=== PATIENT | female | born 1965 | race Caucasian/White ===

== ENCOUNTER 2016-11-30 11:19 | Emergency (ER) | payer OTHER ==
[~2016-11-30] VITALS: Ht 162.6 cm; Wt 73.1 kg
[2016-11-30 11:31] VITALS: BP 136/75
--- NOTE | 2016-11-30 12:18 | NUR ---
Patient ambulated to bed 06.
--- NOTE | 2016-11-30 12:25 | NUR ---
PATIENT PRESENTS TO ED WITH C/O LOWER ABDOMINAL PAIN RADIATING TO RIGHT LOWER BACK X 3 DAYS;BURNING COLIC TYPE PAIN, BLOATING;DENIES N/V/D; SKIN IS PINK/WARM/DRY; AAOX4 WITH EVEN AND STEADY GAIT; LUNGS CLEAR BL; HR EVEN AND REGULAR; PT DENIES ANY FEVER, CP, SOB, OR COUGH AT THIS TIME; PATIENT STATES PAIN OF 9/10 AT THIS TIME;PATIENT POSITIONED FOR COMFORT; HOB ELEVATED; BEDRAILS UP X2; BED DOWN. ALL MONITORS IN PLACED;ER MD MADE AWARE OF PT STATUS.
--- NOTE | 2016-11-30 12:28 | NUR ---
Dr. Calhoun evaluating patient at bedside.
[2016-11-30] MEDS ORDERED: KETOROLAC 60 MG/2 ML VIAL IM ONE (12:30)
--- NOTE | 2016-11-30 12:45 | NUR ---
Patient taken to CT via wheelchair per tech.
--- NOTE | 2016-11-30 12:54 | NUR ---
Patient back from CT via wheelchair per tech.
[2016-11-30 13:38] VITALS: BP 114/76
== END 2016-11-30 13:38 | disposition home or self-care (01) ==
LOC: MED 11:19
DX: R10.2 Pelvic and perineal pain (principal); R03.0 Elevated blood-pressure reading, without diagnosis of hypertension
CPT/HCPCS: 74176; 81002; 81025; 96372; 99284; J1885

== ENCOUNTER 2017-04-22 16:36 | Emergency (ER) | payer OTHER ==
[~2017-04-22] VITALS: Ht 160 cm; Wt 71.8 kg
[2017-04-22 16:56] VITALS: BP 125/69
--- NOTE | 2017-04-22 17:00 | NUR ---
PATIENT TO OF 3
--- NOTE | 2017-04-22 17:04 | NUR ---
PATIENT PRESENTS TO ED WITH C/O PRODUCTIVE COUGH YELLOW PHLEGM, SORE THROAT, CHEST, BACK PAIN, HEAD ACHE 10/10; DENIES N/V/D;DENIES FEVER/SOB;DENIES ANY MREDICAL HX;SKIN IS PINK/WARM/DRY; AAOX4 WITH EVEN AND STEADY GAIT; PATIENT STATES PAIN OF 10/10 AT THIS TIME;PATIENT POSITIONED FOR COMFORT; ER MD MADE AWARE OF PT STATUS.
[2017-04-22 18:00] VITALS: BP 128/73
--- NOTE | 2017-04-22 18:00 | NUR ---
Patient discharged with v/s stable. Written and verbal after care instructions given and explained. Patient alert, oriented and verbalized understanding of instructions. Ambulatory with to car. All questions addressed prior to discharge. ID band removed. Patient advised to follow up with PMD. Rx of promethazine and tramadol given. Patient educated on indication of medication including possible reaction and side effects. Opportunity to ask questions provided and answered.
== END 2017-04-22 18:00 | disposition home or self-care (01) ==
LOC: MED 16:36
DX: B34.9 Viral infection, unspecified (principal)
CPT/HCPCS: 99283

== ENCOUNTER 2017-05-30 23:00 | Inpatient (IN) | payer OTHER ==
[~2017-05-30] VITALS: Ht 157.5 cm; Wt 68.5 kg
[2017-05-30 23:07] VITALS: BP 146/90
--- NOTE | 2017-05-30 23:13 | NUR ---
AMBULATED TO ER BED 4
--- NOTE | 2017-05-30 23:20 | NUR ---
51/F CAME IN C/O 01/20 SHARP EPIGASTRIC PAIN, +TENDERNESS, NONRADIATING, STARTED 1 HOUR AGO. PT REPORTS TAKING TRAMADOL WITHOUT RELIEF. PT REPORTS LAST MEAL "TACOS WITH GUACAMOLE" PT MOANING, GRIMACING AND GRASPING SITE. RESPIRATIONS EVEN AND UNLABORED. NO PMH, NKA.
[2017-05-31] MEDS ORDERED: KETOROLAC 30 MG/ML VIAL IM ONE (00:15)
[2017-05-31 01:04] LABS: HEMATOCRIT 41.9 % (36-48); HEMOGLOBIN 13.8 g/dL (12.0-16.0); MEAN CORPUSCULAR HEMOGLOBIN 29 pg (27-31); MEAN CORPUSCULAR HGB CONC 33 g/dL (33-37); MEAN CORPUSCULAR VOLUME 89 fL (80-94); PLATELET COUNT (AUTO) 263 K/uL (140-450); RED CELL DISTRIBUTION WIDTH 12.7 % (11.6-13.7); WHITE BLOOD COUNT (AUTO) 9.3 K/uL (4.8-10.8)
--- NOTE | 2017-05-31 01:25 | NUR ---
Note thong in ED - 05/31/17 at 0129 by ZENON Patient will be admitted to care of DR GUPTA. Admited to [facility]. Will go to room 120B. Belongings list completed. Report to TITO LONGO.
[2017-05-31 01:26] LABS: LYMPHOCYTES % (MANUAL) 25 % (20-46); MONOCYTES % (MANUAL) 5 % (5-12)
[2017-05-31 01:28] LABS: POTASSIUM 4.4 mmol/L (3.5-5.1)
[2017-05-31 01:29] LABS: ALBUMIN 3.7 g/dL (3.4-5.0); ANION GAP 8.4 (8-16); TOTAL BILIRUBIN 0.2 mg/dL (0.0-1.0)
[2017-05-31] MEDS ORDERED: MORPHINE SULFATE 4 MG/ML SYR IVP ONE (01:40)
[2017-05-31] MEDS ORDERED: ONDANSETRON 4 MG/2 ML VIAL IVP ONE (01:40)
[2017-05-31] MEDS ORDERED: NACL 0.9% 1,000 ML IV ONE (01:40)
[2017-05-31] MEDS ORDERED: ACETAMINOPHEN 325 MG TAB PO PRN (01:55)
[2017-05-31] MEDS ORDERED: ONDANSETRON 4 MG/2 ML VIAL IVP PRN (01:55)
[2017-05-31] MEDS ORDERED: HYDROcodone/APAP 5/325 MG 1 TAB TAB PO PRN (01:55)
[2017-05-31] MEDS ORDERED: MORPHINE SULFATE 4 MG/ML SYR IVP PRN (01:55)
[2017-05-31] MEDS ORDERED: TRAM50TA1 PO (02:14)
--- NOTE | 2017-05-31 02:15 | NUR ---
PATIENT ADMIT DX ABD PAIN.PATIENT IS AWAKE ALERT ORIENTED RESTING IN BED.IV SITE TO RT AC G#18 CURRENTLY PATENT.SKIN ASSESSMENT DONE AND SKIN IS CURRENTLY INTACT. PATIENT DENIES ANY PAIN UPON ADMISSION OR FEELING NAUSEATED.PLAN OF CARE DISCUSSED WITH THE PATIENT. PATIENT IS ALSO AWARE THAT SHE CANNOT DRINK OR EAT ANYTHING PATIENT IS NPO PATIENT VERBALIZES UNDERSTANDING. DAUGHTER AT BEDSIDE WITH THE PATIENT.PATIENT HAS BEEN ORIENTED TO CALL LIGHT ROOM AND VISITING HOURS.WILL CONTINUE TO OBSERVE.
--- NOTE | 2017-05-31 02:18 | NUR ---
Patient will be admitted to care of [facility]. Admited to [facility]. Will go to room 106A. Belongings list completed. Report to DEMOND SCHAEFER.
[2017-05-31 02:46] VITALS: BP 144/75
[2017-05-31] MEDS: DEXT 5% /NACL 0.9% 1,000 ML IV SCH ×2 (02:48→16:24)
[2017-05-31 04:00] VITALS: BP 99/55
--- NOTE | 2017-05-31 04:30 | NUR ---
PATIENT STABLE DENIES PAIN REMAINS NPO NEEDS MET WILL CONTINUE TO MONITOR.
--- NOTE | 2017-05-31 06:50 | NUR ---
PATIENT STABLE RESTING COMFORTABLE IN BED NO DISTRESS.IVF INFUSING WELL IV SITE PATENT.
[2017-05-31 07:10] LABS: BASOPHILS # (AUTO) 0.2 K/uL (0.00-0.22); BASOPHILS % (AUTO) 2.1 % (0.0-2.0); EOSINOPHILS # (AUTO) 0.2 K/uL (0-0.4); EOSINOPHILS % (AUTO) 1.7 % (0.0-4.0); HEMATOCRIT 38.8 % (36-48); HEMOGLOBIN 12.9 g/dL (12.0-16.0); LYMPHOCYTES # (AUTO) 1.9 K/uL (2.5-16.5); MEAN CORPUSCULAR HEMOGLOBIN 30 pg (27-31); MEAN CORPUSCULAR HGB CONC 33 g/dL (33-37); MEAN CORPUSCULAR VOLUME 89 fL (80-94); MONOCYTES # (AUTO) 0.7 K/uL (0.8-1.0); MONOCYTES % (AUTO) 7.2 % (1.7-9.3); NEUTROPHILS # (AUTO) 6.5 K/uL (1.8-7.7); PLATELET COUNT (AUTO) 236 K/uL (140-450); RED BLOOD CELL COUNT(AUTO) 4.37 MIL/uL (4.20-5.40); RED CELL DISTRIBUTION WIDTH 12.9 % (11.6-13.7); WHITE BLOOD COUNT (AUTO) 9.5 K/uL (4.8-10.8)
--- NOTE | 2017-05-31 07:35 | NUR ---
PATIENT STANBLE REPORT ENDORSED TO TITO BROWER.
--- NOTE | 2017-05-31 07:36 | NUR ---
RECEIVED REPORT FROM BOTTOM SAW OPERATOR RN AT BEDSIDE FOR CONTINUITY OF CARE. PATIENT IS RESTING IN BED. IV TO R AC 18G, PATENT, ASYMPTOMATIC, AND INTACT. BREATHING EVEN AND UNLABORED, NO SIGNS OF DISTRESS NOTED. PATIENT DENIES PAIN AT THIS TIME. INTRODUCED MYSELF TO THE PATIENT AND UPDATED THE BOARD. PLAN OF CARE WAS UPDATED, PATIENT VERBALIZED UNDERSTANDING. SAFETY PRECAUTIONS IN PLACE, CALL LIGHT WITHIN REACH. WILL CONTINUE TO MONITOR PATIENT.
[2017-05-31 08:00] VITALS: BP 106/67
--- NOTE | 2017-05-31 09:55 | NUR ---
PATIENT RESTING IN BED, NO SIGNS OF DISTRESS NOTED, BREATHING EVEN AND UNLABORED. SAFETY PRECAUTIONS IN PLACE, CALL LIGHT WITHIN REACH, WILL CONTINUE TO MONITOR PATIENT. Addendum: 05/31/17 at 1026 by Artur Lutz RN BP 109/64, HR 67.
--- NOTE | 2017-05-31 12:35 | NUR ---
PATIENT RESTING IN BED, NO SIGNS OF DISTRESS NOTED, BREATHING EVEN AND UNLABORED. SAFETY PRECAUTIONS IN PLACE, CALL LIGHT WITHIN REACH, WILL CONTINUE TO MONITOR PATIENT.
[2017-05-31 13:33] LABS: ANION GAP 11.4 (8-16); CARBON DIOXIDE 25.8 mmol/L (21-32); CREATININE 0.8 mg/dL (0.6-1.3); POTASSIUM 4.2 mmol/L (3.5-5.1)
--- NOTE | 2017-05-31 15:35 | NUR ---
PAGED DR. WILLIS ABOUT PATIENT'S CONSULT. AWAITING HIS REPLY.
[2017-05-31 16:00] VITALS: BP 125/65
--- NOTE | 2017-05-31 16:00 | NUR ---
DR WILLIS CALLED BACK, SAID HE "WILL BE IN TO SEE THE PATIENT LATER TONIGHT". PATIENT AND FAMILY AT BEDSIDE INFORMED OF THIS INFORMATION.
--- NOTE | 2017-05-31 17:45 | NUR ---
DR WILLIS CALLED BACK. SAID THAT HE WILL BE IN LATE TO SEE THE PATIENT TODAY FOR THE CONSULT. AFTER LOOKING OVER HER LABS AND INFORMATION, DR WILLIS REQUESTED TO SPEAK TO THE PATIENT ABOUT HER POSSIBLE DISCHARGE THIS PM, AND AN APPOINTMENT TO SEE HIM AT HIS PERRY OFFICE TOMORROW MORNING. DR. WILLIS SPOKE TO THE PATIENT ON THE PHONE, EXPLAINED HIS PLAN OF CARE. PATIENT VERBALIZED UNDERSTANDING AND IS WILLING TO BE DISCHARGE TONIGHT AND TO COME TO HIS OFFICE TOMORROW FOR POSSIBLE OUTPATIENT CONSULT AND PROCEDURE. DR. WILLIS SAID HE WILL TALK TO PATIENT'S PRIMARY PHYSICIAN ABOUT DISCHARGE TONIGHT. PATIENT'S DIET CAN BE CHANGED FROM NPO TO LOW FAT DIET BEFORE DISCHARGE HOME. DIETARY CALLED ABOUT CARDIAC DIET AND LATE TRAY. WILL AWAIT TRAY. PATIENT RESTING IN BED, CALL LIGHT WITHIN REACH. WILL CONTINUE TO MONITOR PATIENT.
--- NOTE | 2017-05-31 18:15 | NUR ---
DR. STODDARD WAS PAGED. AWAITING CALL BACK FROM PROFESSIONAL BASS FISHERMAN PHYSICIAN ABOUT DISCHARGE IN THIS PM.
--- NOTE | 2017-05-31 18:38 | NUR ---
SAFETY PERSON PHYSICIAN CALLED BACK, HE WAS NOT SURE ABOUT DISCHARGING PATIENT. HE WILL CALL DR. STODDARD ABOUT THIS MATTER. AWAITING DR. STODDARD'S CALL BACK.
--- NOTE | 2017-05-31 18:50 | NUR ---
DR. STODDARD CALLED BACK. SPOKE DIRECTLY TO THE PATIENT. PATIENT VERBALIZED UNDERSTANDING THAT SHE WAS WILLING TO BE DISCHARGED AND TO SEE DR. WILLIS TOMORROW IN HIS OFFICE AN OUTPATIENT. DR. STODDARD ORDER PATIENT TO BE DISCHARGE TONIGHT AND TO FOLLOW UP AT DR. WILLIS'S OFFICE TOMORROW. PATIENT RESTING IN BED, CALL LIGHT WITHIN REACH. WILL CONTINUE TO MONITOR PATIENT. WILL START DISCHARGE PAPERWORK.
--- NOTE | 2017-05-31 19:30 | NUR ---
REPORT GIVEN TO ESTHETICIAN MAKEUP ARTIST NURSE AT BEDSIDE FOR CONTINUITY OF CARE. PATIENT'S FAMILY AT BEDSIDE WAS ALREADY TOLD OF IMPENDING DISCHARGE, THEY VERBALIZED UNDERSTANDING. ENDORSED DISCHARGE PAPERWORK TO ESTHETICIAN MAKEUP ARTIST NURSE. PATIENT IN STABLE CONDITION.
--- NOTE | 2017-05-31 19:40 | NUR ---
RECEIVED REPORT FROM AM NURSE. PT RESTING IN BED, AOX4, AMBULATORY, ABLE TO VERBALIZE NEEDS. PT DENIES ABD PAIN, N/V/D OR S/S OF ACUTE DISTRESS. DISCUSSED THAT PT WILL BE DISCHARGED, PT'S FAMILY ALREADY ON THE WAY TO [employer] ASSOCIATE PT. ALL NEEDS MET. SAFETY MEASURES ENSURED. CALL LIGHT WITHIN REACH.
[2017-05-31 19:54] VITALS: BP 124/77
[2017-05-31 20:00] VITALS: BP 124/77
--- NOTE | 2017-05-31 20:25 | NUR ---
DISCHARGE INSTRUCTIONS GIVEN TO PT, ALL QUESTIONS ANSWERED. PT WITH PT'S FAMILY ACCOMPANYING PT, PT PREFERRED TO AMBULATE INDEPENDENTLY. IV ACCESS ALREADY REMOVED BY AM NURSE, ID BAND REMOVED. VSS, CONDITION STABLE AT DISCHARGE.
--- NOTE | 2017-06-01 13:34 | NUR ---
CM NOTE RETRO REVIEW FAXED TO [facility] / FAX# [phone], ATTN: REGIS [phone]
--- NOTE | 2017-06-03 14:44 | NUR ---
CM NOTE DISCHARGE SUMMARY FAXED TO [facility] / FAX# [phone], ATTN: REGIS [phone]
== END 2017-05-31 20:25 | disposition home or self-care (01) ==
LOC: MED 23:00 → MTU 05-31 02:02
PROVIDERS: ADMIT Hospitalist; ATTEND Hospitalist
DX: K80.10 Calculus of gallbladder with chronic cholecystitis without obstruction (principal)
CPT/HCPCS: 36415; 76705; 80048; 80053; 83690; 85025; 87081; 96372; 96374; 96375; 99285; J1885; J2270; J2405; J7030; J7042; Q0092